=== PATIENT | male | born 1975 | race Caucasian/White ===

== ENCOUNTER 2021-08-31 08:01 | Outpatient (CLI) | payer OTHER, SELFPAY ==
--- NOTE | 2021-09-06 17:05 | WPDHOLTEREM ---
Holter/Event Monitor Holter/Event Monitor Date of procedure: 08/31/21 Holter/Event Procedure: 48 Hr Holter Monitor Diagnosis: Palpitations Indications: Palpitations Image/Tracing Quality: Good Finding: A total of 47 hours and 59 minutes recorded and analyzed. Underlying normal sinus rhythm with heart rate variability between 44 and 152 beats per minute with average heart rate 77 beats per minute. Longest RR interval was 2.1 seconds. The AV and IV conduction systems were within normal limits. Low frequency ventricular ectopy without sustained or nonsustained runs of ventricular arrhythmia. There was 105 isolated ventricular ectopic beats. Ninety-six of these were isolated PVCs and 7 interpolated PVCs. Low frequency supraventricular ectopy totaling 208 beats. This consisted 1 atrial couplet in the rest of which were isolated atrial premature contractions or late beats. No sustained or nonsustained runs of supraventricular arrhythmia No atrial fibrillation Symptom event of flutter correlated to sinus tachycardia at heart rate of 100 beats per minute. Heavy breathing correlated to sinus rhythm Conclusion: 1. Unremarkable 48 hour Holter monitor revealing sinus rhythm with average heart rate 77 beats per minute. 2. Low-frequency ventricular and supraventricular ectopy as detailed above without ventricular or supraventricular runs. 3. No complex arrhythmia, heart block or pauses 4. Symptoms correlated to sinus rhythm or sinus tachycardia
== END 2021-08-31 08:02 | disposition home or self-care (01) ==
PROVIDERS: PCP Internal Medicine; Visit Provider Registered Nurse
DX: R00.2 Palpitations (principal)
CPT/HCPCS: 93225; 93226

== ENCOUNTER 2022-04-06 17:37 | Emergency (ER) | payer OTHER, SELFPAY ==
--- NOTE | ~2022-04-06 | XR_ITS ---
XR ankle LT min 3V DATE: 04/06/2022 17:57 INDICATION: Twisted left ankle. Lateral pain. TECHNIQUE: 4 views COMPARISON: None FINDINGS: Mild plantar calcaneal enthesopathy without erosive change or periostitis. No fracture or dislocation of the ankle or disruption of the ankle mortise. No periosteal reaction or bone destruction. IMPRESSION: No fracture or dislocation of ankle Mild plantar calcaneal enthesopathy Reviewed, dictated and finalized at location B.
--- NOTE | 2022-04-06 17:41 | ED.LOWEXIN ---
HPI - Extremity Injury (Lower) General Chief Complaint: Extremity Injury, Lower Stated Complaint: Injury to left ankle and foot Time Seen by Provider: 04/06/22 17:59 Source: patient and RN notes reviewed Mode of arrival: ambulatory Limitations: no limitations History of Present Illness HPI Narrative: 46-year-old male presents with concern for ankle pain. He reports he rolled his ankle today at work, he then walked on it throughout the rest the day, when he was getting out of his car after work he was unable to put weight on it. He reports the pain radiates to the foot. He denies any [id number] or at home intervention for his pain. Denies any history of injury to the ankle. He denies swelling, warmth, redness, bruising. MD complaint: ankle injury Related Data Home Medications Medication Instructions Recorded Confirmed lisinopril 30 mg tablet mg 04/06/22 omeprazole 40 mg capsule,delayed mg 04/06/22 release rosuvastatin 20 mg tablet mg 04/06/22 venlafaxine 75 mg capsule,extended mg PO 04/06/22 release 24 hr Allergies Allergy/AdvReac Type Severity Reaction Status Date / Time No Known Drug Allergies Allergy Verified 08/14/11 10:18 Review of Systems Review of Systems: CONSTITUTIONAL: Denies malaise, chills, sweats, or fever. SKIN: Denies rash or itching, open skin, laceration, abrasion, redness, warmth, swelling. MUSCULOSKELETAL: Reports left ankle pain NEUROLOGIC: Denies numbness, weakness All systems reviewed & are unremarkable except as noted in HPI and below PMFSH Family History Family History (Updated 03/12/14 @ 07:13 by DOCTOR UNKNOWN) Mother Hypertension Social History Social History Smoking status: Never smoker Alcohol intake: current Comments At time of signature, agree with nursing past medical, surgical, social and family history. There is no relevant family history pertinent to the presenting complaint Exam Narrative: GENERAL: Well-appearing, well-nourished, and in no acute distress. HEAD: Normocephalic, atraumatic. EYES: PERRLA, conjunctivae clear NECK: Supple. CHEST: Speaks in full sentences. No respiratory distress. HEART: Regular rate and rhythm. Normal and equal peripheral pulses. EXTREMITIES: Left ankle, foot, digits have normal strength and sensation, normal range of motion. No edema or ecchymosis. 5/5 strength with ankle and digit flexion and extension. Normal sensation with sensitivity to light touch and pain. No point tenderness. No open wounds, no skin tenting, no devitalized tissue or atrophy, no trophic changes, no obvious deformity, alignment normal, nearby joints and structures intact. Distal pulses palpable and equal bilaterally, skin warm, dry, pink. Capillary refill less than 3 seconds. SKIN: Warm, dry, no rash. NEURO: Alert and oriented x3. PSYCH: Normal mood and affect Course Course Emergency Course: Patient is aware of diagnosis, understands and agrees to treatment plan. Anticipatory guidance given. Patient agrees to follow-up as directed and is aware of reasons to seek care at the emergency department. Portions of this record may have been created with voice recognition software Level of Care: Express Care Visit Vital Signs Vital signs: Reviewed. MDM - Extremity Injury (Lower) MDM Narrative Medical decision making narrative: Patients injury and pain is consistent with musculoskeletal etiology. No signs of neurological or vascular compromise on exam. Compartments and tissues are soft without signs of compartment syndrome. Pain is felt appropriate for further evaluation on an outpatient basis. Critical Care Time Critical Care Time Critical Care Time: No Discharge Plan Discharge Clinical Impression: Ankle sprain and strain Patient Disposition: Home, Self-Care Condition: Stable Instructions: Ankle Sprain (ED) Additional Instructions: Avoid activities that cause pain until the pain subsides. Ice to the area 20-30 minutes
[2022-04-06 17:48] VITALS: BP 147/95; PULSE 99; RESP 16; TEMP 36.4; O2SAT 98
== END 2022-04-06 18:22 | disposition home or self-care (01) ==
PROVIDERS: Emergency Provider Nurse Practitioner; PCP Internal Medicine
DX: S93.402A Sprain of unspecified ligament of left ankle, initial encounter (principal); T14.90XA Injury, unspecified, initial encounter
CPT/HCPCS: 73610; 99213; G0463

== ENCOUNTER 2023-10-01 11:42 | Outpatient (CLI) | payer OTHER, SELFPAY ==
--- NOTE | ~2023-10-01 | XR_ITS ---
EXAM: XR lumbar spine 2-3V DATE: 10/01/2023 12:21 HISTORY: si joint pain . COMPARISON: 04/10/2012. FINDINGS: Mild thoracolumbar scoliosis. Exaggerated lumbar lordosis. 5 nonrib-bearing lumbar-type ve rtebral bodies. Pedicles intact. Normal vertebral body alignment. Vertebral body heights preserved. M ild marginal osteophytosis at the superior endplates of L4 and L5. Mild disc space narrowing at L5-S1 . Lower lumbar facet sclerosis and hypertrophy, mild at L4-5 and moderate at L5-S1 with interspinous narrowing at L4-5. No fracture or dislocation. IMPRESSION: Mild multilevel degenerative disc disease. Lower lumbar facet arthropathy. Reviewed, dictated and finalized at location K. IMPRESSION: Mild multilevel degenerative disc disease. Lower lumbar facet arthr opathy.
--- NOTE | ~2023-10-01 | XR_ITS ---
EXAM: XR pelvis 1-2V DATE: 10/01/2023 12:22 HISTORY: si joint pain, lumbar rad. pain . COMPARISON: 04/10/2012. FINDINGS: Normal mineralization. No fracture or dislocation. No lytic or blastic lesion. Mild bilate ral superior hip joint space narrowing. No erosion or periosteal change. Multiple pelvic phleboliths. Soft tissues within normal limits. IMPRESSION: Mild bilateral hip osteoarthritis. Reviewed, dictated and finalized at location K.
== END 2023-10-01 11:43 ==
PROVIDERS: PCP Chiropractor; Visit Provider Chiropractor
DX: M54.16 Radiculopathy, lumbar region (principal); M16.0 Bilateral primary osteoarthritis of hip; M51.36 Other intervertebral disc degeneration, lumbar region
CPT/HCPCS: 72100; 72170